=== PATIENT | female | born 1980 | race African-American/Black ===

== ENCOUNTER 2018-09-28 11:24 | Outpatient (CLI) | payer BC ==
--- NOTE | 2018-09-29 15:33 | MMO ---
Bilateral MAMMO Bilat Screen [facility]. CLINICAL HISTORY: Patient is 38 years old and is seen for screening. The patient has the following family history of breast cancer: mother, at age 55 and 2 cousin females, AND 1 SECOND COUSIN. The patient has no personal history of cancer. VIEWS: The views performed were: bilateral craniocaudal with tomosynthesis and bilateral mediolateral oblique with tomosynthesis. FILMS COMPARED: The present examination has been compared to prior imaging studies performed at [facility] on 11/20/2009, 12/27/2014, 01/02/2016 and 01/29/2017. MAMMOGRAM FINDINGS: The breasts are heterogeneously dense, which could obscure a lesion on mammography. There are no suspicious masses, calcifications or areas of architectural distortion. IMPRESSION: THERE IS NO MAMMOGRAPHIC EVIDENCE OF MALIGNANCY. A ROUTINE FOLLOW-UP MAMMOGRAM IN 1 YEAR IS RECOMMENDED. THE RESULTS OF THIS EXAM WERE SENT TO THE PATIENT. ACR BI-RADS Category 1 - Negative MAMMOGRAPHY NOTE: 1. A negative mammogram report should not delay a biopsy if a dominant of clinically suspicious mass is present. 2. Approximately 10% to 15% of breast cancers are not detected by mammography. 3. Adenosis and dense breasts may obscure an underlying neoplasm.
== END 2018-09-28 11:25 | disposition home or self-care (01) ==
LOC: BICMAMMO 11:24
PROVIDERS: ATTEND Family Medicine
DX: Z12.31 Encounter for screening mammogram for malignant neoplasm of breast (principal); Z80.3 Family history of malignant neoplasm of breast
CPT/HCPCS: 77063; 77067

== ENCOUNTER 2019-06-01 12:36 | Outpatient (CLI) | payer BC ==
--- NOTE | 2019-06-01 13:15 | RAD ---
2 views lumbar spine: 06/01/2019 COMPARISON: None HISTORY: Spondylosis, chronic low back pain FINDINGS: 5 lumbar type vertebral bodies are present with intact pedicles on frontal imaging. Lateral examination demonstrates normal vertebral body height and alignment. No acute osseous abnormality. IMPRESSION: No acute osseous abnormality. If there are radicular symptoms, MRI may be beneficial.
--- NOTE | 2019-06-01 13:16 | RAD ---
4 views of the cervical spine: 06/01/2019 COMPARISON: None HISTORY: Chronic neck pain radiating down both shoulders to the elbows, radiculopathy FINDINGS: Open-mouth odontoid view appears unremarkable. Frontal imaging of the cervical spine demons trates normal vertebral body height and alignment. Lateral examination demonstrates straightening of the normal cervical lordosis. No prevertebral soft tissue swelling. No acute osseous abnormality. IMPRESSION: No acute osseous normality. If there are radicular symptoms, MRI advised.
== END 2019-06-01 12:37 | disposition home or self-care (01) ==
LOC: SCSRAD 12:36
PROVIDERS: ATTEND Internal Medicine Rheumatology
DX: M47.812 Spondylosis without myelopathy or radiculopathy, cervical region (principal); M47.816 Spondylosis without myelopathy or radiculopathy, lumbar region
CPT/HCPCS: 72050; 72100

== ENCOUNTER 2020-02-07 13:29 | Outpatient (CLI) | payer BC ==
--- NOTE | 2020-02-07 14:05 | MMO ---
Bilateral MAMMO Bilat Screen [facility]. CLINICAL HISTORY: Patient is 39 years old and is seen for screening. The patient has the following family history of breast cancer: mother, at age 55 and 2 cousin females, AND 1 SECOND COUSIN. The patient has no personal history of cancer. VIEWS: The views performed were: bilateral craniocaudal with tomosynthesis and bilateral mediolateral oblique with tomosynthesis. FILMS COMPARED: The present examination has been compared to prior imaging studies performed at [facility] [place] on 12/27/2014, 01/02/2016, 01/29/2017 and 09/28/2018. This study has been interpreted with the assistance of computer-aided detection. MAMMOGRAM FINDINGS: The breasts are heterogeneously dense, which could obscure a lesion on mammography. There are no suspicious masses, suspicious calcifications, or new areas of architectural distortion. IMPRESSION: THERE IS NO MAMMOGRAPHIC EVIDENCE OF MALIGNANCY. A ROUTINE FOLLOW-UP MAMMOGRAM IN 1 YEAR IS RECOMMENDED. THE RESULTS OF THIS EXAM WERE SENT TO THE PATIENT. ACR BI-RADS Category 1 - Negative MAMMOGRAPHY NOTE: 1. A negative mammogram report should not delay a biopsy if a dominant of clinically suspicious mass is present. 2. Approximately 10% to 15% of breast cancers are not detected by mammography. 3. Adenosis and dense breasts may obscure an underlying neoplasm. Reported by: BRANT HICKS MD Electonically Signed: [id number]
== END 2020-02-07 13:30 | disposition home or self-care (01) ==
LOC: BICMAMMO 13:29
PROVIDERS: ATTEND Family Medicine
DX: Z12.31 Encounter for screening mammogram for malignant neoplasm of breast (principal); Z80.3 Family history of malignant neoplasm of breast
CPT/HCPCS: 77063; 77067

== ENCOUNTER 2022-06-26 09:50 | Outpatient (CLI) | payer BC | END 2022-06-26 09:51 | disposition home or self-care (01) | LOC: BICMAMMO 09:50 | PROVIDERS: ATTEND Family Medicine | DX: Z12.31 Encounter for screening mammogram for malignant neoplasm of breast (principal); Z80.3 Family history of malignant neoplasm of breast | CPT/HCPCS: 77063; 77067 ==